=== PATIENT | female | born 1995 | race Caucasian/White ===

== ENCOUNTER 2016-11-21 06:40 | Inpatient (IN) | payer OTHER ==
[~2016-11-21] VITALS: Ht 157.5 cm; Wt 55.8 kg
--- NOTE | 2016-11-21 08:19 | PDOC1 ---
OB - History Hx of Present Care: Good Care Ultrasounds: Normal mid trimester US Obstetrical Complications: None Medical Complications: None Past Family/Social History * Past Medical, Surgical, Family and Obstetric Histories reviewed from chart. Rubella: Unknown RPR/VDRL: Unknown GBS Status: Unknown HBsAG: Unknown OB - Chief Complaint & HPI Date of Admission: Date of Admission: Nov 21, 2016 at 06:40 Chief Complaint/History : 2 Para: 1 EGA: 34 Reason for admission: labor Admission Nurse Assessment Rev: Yes Problems: OB - Admission Exam Physical Exam HEENT: Normal Heart: Regular Rate Lungs: Clear Abdomen: Gravid, Non tender, Soft Extremities: Edema Reflexes: Normal Cervical Dilatation: 4cm Effacement: 75% Station: -2 Membranes: Intact Heart Rate: Normal Accelerations: Accelerations Present Decelerations: No decelerations Contractions on Admission: < 5 Minutes Apart Intensity: Firm Text A: 34 wks IUP PTL GBS unknown P: Admit for PTL management. Start Pen G prophylaxis. KARY ESPINAL Jr, MD Nov 21, 2016 08:19
[2016-11-21] MEDS ORDERED: LIDOCAINE 1% PF 30 ML VIAL. INJ PRN (08:30)
[2016-11-21] MEDS ORDERED: IV RINGERS,LACTATED 1000ML 1,000 ML IV PRN (08:30)
[2016-11-21] MEDS ORDERED: IBUPROFEN 800 MG TABLET. PO PRN (08:30)
[2016-11-21] MEDS ORDERED: fentaNYL PF VIAL 100 MCG/2 ML VIAL IV PRN (08:30)
[2016-11-21] MEDS ORDERED: OXYTOCIN 30 UNIT/500 ML PREMIX 500 ML IV PRN ×2 (08:30→09:45)
[2016-11-21 08:47] LABS: BASO % 0 % (0-3); EOS % 0 % (0-3); HEMATOCRIT 31.3 % (36.0-47.0); HEMOGLOBIN 10.7 g/dL (12.0-15.5); LYMPH # 1.4 x10^3/uL (1.0-4.8); LYMPH % 11 % (24-48); MEAN CORPUSCULAR HEMOGLOBIN 29 pg (25-35); MEAN CORPUSCULAR HGB CONC 34 g/dL (31-37); MEAN CORPUSCULAR VOLUME 84 fL (79-100); MONO % 6 % (0-9); NEUT % 83 % (31-73); PLATELET COUNT 182 x10^3/uL (140-400); RED BLOOD COUNT 3.74 x10^6/uL (3.50-5.40); RED CELL DISTRIBUTION WIDTH 12.8 % (11.5-14.5); WHITE BLOOD COUNT 12.3 x10^3/uL (4.0-11.0)
[2016-11-21] MEDS ORDERED: PENICILLIN G K 5,000,000 UNIT in IV NORMAL SALINE 100ML 100 ML IV ONE (09:00)
--- NOTE | 2016-11-21 09:33 | PDOC ---
VAGINAL DELIVERY DATE DATE: 11/21/16 TIME: 09:31 : 2 Para: 1 EGA: 34 VAGINAL DELIVERY: VTX VACCUM ASSISTED: No PLACENTA: Spontaneous 7/9 SEX: Male WEIGHT Weight [ pending] Nuchal Cord: No Amniotic Fluid: Other (bloody) PAIN: Natural EPISIOTOMY: No EXTENSION: No EBL 400 ml COMPLICATIONS placental abruption 25% CONDITION pt. stable Signs of Intrauterine Infectio: None Shoulder Dystocia: No Problems: KARY ESPINAL Jr, MD Nov 21, 2016 09:33
[2016-11-21] MEDS ORDERED: BENZOCAINE 20% TOPICAL AEROSOL SPRAY 57GM CAN. TP PRN (09:45)
[2016-11-21] MEDS ORDERED: MAG HYDROX/ALUMINUM HYD/SIMETH 30 ML ORAL.SUSP PO PRN (09:45)
[2016-11-21] MEDS ORDERED: DOCUSATE SODIUM 100 MG CAPSULE. PO PRN (09:45)
[2016-11-21] MEDS ORDERED: PHENYLEPH/MINERAL OIL/PETROLAT RECTAL OINTMENT 28GM TUBE. RC PRN (09:45)
[2016-11-21] MEDS ORDERED: SIMETHICONE 80 MG TAB.CHEW PO PRN (09:45)
[2016-11-21] MEDS ORDERED: diphenhydrAMINE HCL 25 MG CAPSULE PO PRN (09:45)
[2016-11-21] MEDS ORDERED: 0.9 % SODIUM CHLORIDE 10 ML DISP.SYRIN. IV PRN (09:45)
[2016-11-21] MEDS ORDERED: HYDROCORTISONE 1% TOPICAL OINTMENT 30GM TUBE. TP PRN (09:45)
[2016-11-21] MEDS ORDERED: oxyCODONE/APAP 5/325 1 TAB TABLET PO PRN (09:45)
[2016-11-21] MEDS ORDERED: ACETAMINOPHEN 325 MG TABLET. PO PRN (09:45)
[2016-11-21] MEDS ORDERED: MMR per PROTOCOL. MC PRN (09:45)
[2016-11-21] MEDS ORDERED: MAGNESIUM HYDROXIDE 2,400 MG/30 ML ORAL.SUSP. PO PRN (09:45)
[2016-11-21] MEDS ORDERED: ZOLPIDEM 5 MG TABLET. PO PRN (09:45)
[2016-11-21 10:15] LABS: BARBITURATES NEG (NEG); BENZODIAZEPINES NEG (NEG); CANNABINOIDS POS (NEG); COCAINE NEG (NEG); METHADONE NEG (NEG); OPIATES NEG (NEG); PHENCYCLIDINE NEG (NEG)
[2016-11-21 10:26] LABS: BILIRUBIN,URINE NEGATIVE (NEG); GLUCOSE,URINE NEGATIVE (NEG); NITRITE,URINE NEGATIVE (NEG); PH,URINE 8.5; PROTEIN,URINE NEGATIVE (NEG-TRACE); UROBILINOGEN,URINE 0.2 mg/dL (0.2 mg/dL)
[2016-11-21 10:39] LABS: BACTERIA,URINE FEW /HPF (0-FEW); RBC,URINE RARE /HPF (0-2)
[2016-11-21 10:40] LABS: SQUAMOUS EPITHELIAL CELL,UR FEW /LPF
[2016-11-21 10:42] VITALS: BP 120/77
[2016-11-21] MEDS ORDERED: PENICILLIN G K 2,500,000 UNIT in IV NORMAL SALINE 50ML 50 ML IV SCH (13:00)
[2016-11-21 13:42] VITALS: BP 106/67
[2016-11-21 14:20] VITALS: BP 108/78
[2016-11-21] MEDS: IBUPROFEN 800 MG TABLET. PO PRN (17:51)
[2016-11-21 20:05] VITALS: BP 100/66
[2016-11-22 01:20] VITALS: BP 94/61
[2016-11-22 05:58] VITALS: BP 107/66
[2016-11-22 07:12] LABS: BASO % 0 % (0-3); EOS % 1 % (0-3); HEMATOCRIT 27.3 % (36.0-47.0); HEMOGLOBIN 9.2 g/dL (12.0-15.5); LYMPH # 2.9 x10^3/uL (1.0-4.8); LYMPH % 24 % (24-48); MEAN CORPUSCULAR HEMOGLOBIN 29 pg (25-35); MEAN CORPUSCULAR HGB CONC 34 g/dL (31-37); MEAN CORPUSCULAR VOLUME 85 fL (79-100); MONO % 6 % (0-9); NEUT % 68 % (31-73); PLATELET COUNT 189 x10^3/uL (140-400); RED BLOOD COUNT 3.22 x10^6/uL (3.50-5.40)
[2016-11-22 07:50] VITALS: BP 109/74
[2016-11-22] MEDS ORDERED: FERROUS SULFATE 325 MG TABLET. PO SCH (08:00)
[2016-11-22] MEDS: IBUPROFEN 800 MG TABLET. PO PRN (10:00)
--- NOTE | 2016-11-22 11:00 | PDOC ---
OB Progress Note Date of Service 11/22/16 Time of Evaluation 1100 Notes Pt. feeling well. No complaints. Lab Laboratory Tests Test 11/21/16 08:36 11/21/16 09:20 11/22/16 05:55 White Blood Count 12.3 x10^3/uL (4.0-11.0) 12.0 x10^3/uL (4.0-11.0) Red Blood Count 3.74 x10^6/uL (3.50-5.40) 3.22 x10^6/uL (3.50-5.40) Hemoglobin 10.7 g/dL (12.0-15.5) 9.2 g/dL (12.0-15.5) Hematocrit 31.3 % (36.0-47.0) 27.3 % (36.0-47.0) Mean Corpuscular Volume 84 fL (79-100) 85 fL (79-100) Mean Corpuscular Hemoglobin 29 pg (25-35) 29 pg (25-35) Mean Corpuscular Hemoglobin Concent 34 g/dL (31-37) 34 g/dL (31-37) Red Cell Distribution Width 12.8 % (11.5-14.5) 13.0 % (11.5-14.5) Platelet Count 182 x10^3/uL (140-400) 189 x10^3/uL (140-400) Neutrophils (%) (Auto) 83 % (31-73) 68 % (31-73) Lymphocytes (%) (Auto) 11 % (24-48) 24 % (24-48) Monocytes (%) (Auto) 6 % (0-9) 6 % (0-9) Eosinophils (%) (Auto) 0 % (0-3) 1 % (0-3) Basophils (%) (Auto) 0 % (0-3) 0 % (0-3) Neutrophils # (Auto) 10.1 x10^3uL (1.8-7.7) 8.2 x10^3uL (1.8-7.7) Lymphocytes # (Auto) 1.4 x10^3/uL (1.0-4.8) 2.9 x10^3/uL (1.0-4.8) Monocytes # (Auto) 0.7 x10^3/uL (0.0-1.1) 0.8 x10^3/uL (0.0-1.1) Eosinophils # (Auto) 0.0 x10^3/uL (0.0-0.7) 0.1 x10^3/uL (0.0-0.7) Basophils # (Auto) 0.0 x10^3/uL (0.0-0.2) 0.0 x10^3/uL (0.0-0.2) RPR Titer Additional Testing Non reactive (Non Reactive) Urine Collection Type Unknown Urine Color Yellow Urine Clarity Clear Urine pH 8.5 Urine Specific [place] 1.015 Urine Protein Negative mg/dL (NEG-TRACE) Urine Glucose (UA) Negative mg/dL (NEG) Urine Ketones (Stick) >=80 mg/dL (NEG) Urine Blood Negative (NEG) Urine Nitrite Negative (NEG) Urine Bilirubin Negative (NEG) Urine Urobilinogen Dipstick 0.2 mg/dL (0.2 mg/dL) Urine Leukocyte Esterase Negative (NEG) Urine RBC Rare /HPF (0-2) Urine WBC 1-4 /HPF (0-4) Urine Squamous Epithelial Cells Few /LPF Urine Amorphous Sediment Present /HPF Urine Bacteria Few /HPF (0-FEW) Urine Mucus Slight /LPF Urine Opiates Screen Neg (NEG) Urine Methadone Screen Neg (NEG) Urine Barbiturates Neg (NEG) Urine Phencyclidine Screen Neg (NEG) Urine Amphetamine/Methamphetamine Neg (NEG) Urine Benzodiazepines Screen Neg (NEG) Urine Cocaine Screen Neg (NEG) Urine Cannabinoids Screen Pos (NEG) Urine Ethyl Alcohol Neg (NEG) Laboratory Tests Test 11/22/16 05:55 White Blood Count 12.0 x10^3/uL (4.0-11.0) Red Blood Count 3.22 x10^6/uL (3.50-5.40) Hemoglobin 9.2 g/dL (12.0-15.5) Hematocrit 27.3 % (36.0-47.0) Mean Corpuscular Volume 85 fL (79-100) Mean Corpuscular Hemoglobin 29 pg (25-35) Mean Corpuscular Hemoglobin Concent 34 g/dL (31-37) Red Cell Distribution Width 13.0 % (11.5-14.5) Platelet Count 189 x10^3/uL (140-400) Neutrophils (%) (Auto) 68 % (31-73) Lymphocytes (%) (Auto) 24 % (24-48) Monocytes (%) (Auto) 6 % (0-9) Eosinophils (%) (Auto) 1 % (0-3) Basophils (%) (Auto) 0 % (0-3) Neutrophils # (Auto) 8.2 x10^3uL (1.8-7.7) Lymphocytes # (Auto) 2.9 x10^3/uL (1.0-4.8) Monocytes # (Auto) 0.8 x10^3/uL (0.0-1.1) Eosinophils # (Auto) 0.1 x10^3/uL (0.0-0.7) Basophils # (Auto) 0.0 x10^3/uL (0.0-0.2) Medications Current Medications Ringer's Solution 1,000 ml @ 125 mls/hr Q8H PRN IV PER PROTOCOL Last administered on 11/21/16 08:55; Start 11/21/16 at 08:30 Fentanyl Citrate (Fentanyl 2ml Vial) 100 mcg PRN Q1HR PRN IV Severe pain Last administered on 11/21/16 08:55; Start 11/21/16 at 08:30 Lidocaine HCl 30 ml 1X PRN PRN INJ SEE COMMENTS; Start 11/21/16 at 08:30; Stop 11/23/16 at 08:29 Oxytocin/Sodium Chloride 500 ml @ 0 mls/hr CONT PRN PRN IV Post delivery bleeding Last administered on 11/21/16 09:30; Start 11/21/16 at 08:30 Ibuprofen (Motrin) 800 mg PRN Q6HRS PRN PO PAIN; Start 11/21/16 at 08:30; Stop 11/21/16 at 12:28; Status DC Penicillin G Potassium 5421353 unit/Sodium Chloride 100 ml @ 100 mls/hr 1X ONCE IV Last administered on 11/21/16 09:08; Start 11/21/16 at 09:00; Stop at 09:59; Status DC Penicillin G Potassium [id number] unit/Sodium Chloride 50 ml @ 100 mls/hr Q4H IV ; Start 11/21/16 at 13:00; Stop 11/22/16 at 07:12; Status DC Sodium Chloride (Normal Saline Flush) 10 ml QSHIFT PRN IV AFTER MEDS AND BLOOD DRAWS; Start 11/21/16 at 09:45 Oxytocin/Sodium Chloride 500 ml @ 62.5 mls/hr CONT PRN IV SEE I/O RECORD; Start 11/21/16 at 09:45; Stop 11/21/16 at 17:44; Status DC Acetaminophen (Tylenol) 650 mg PRN Q6HRS PRN PO MILD PAIN / TEMP Last administered on 11/21/16 23:11; Start 11/21/16 at 09:45 Ibuprofen (Motrin) 800 mg PRN Q8HRS PRN PO INFLAMMATION/PAIN PREVENTION Last administered on 11/22/16 10:00; Start 11/21/16 at 09:45 Docusate Sodium (Colace) 100 mg PRN BID PRN PO CONSTIPATION Last administered on 11/22/16 07:56; Start 11/21/16 at 09:45 Magnesium Hydroxide (Milk Of Magnesia) 2,400 mg PRN DAILY PRN PO CONSTIPATION; Start 11/21/16 at 09:45 Al Hydroxide/Mg Hydroxide (Mylanta Plus Xs) 30 ml PRN Q4HRS PRN PO HEARTBURN / GAS; Start 11/21/16 at 09:45 Simethicone (Gas-X) 80 mg PRN AFTMEALHC PRN PO GAS / BLOATING; Start 11/21/16 at 09:45 Diphenhydramine HCl (Benadryl) 25 mg PRN Q6HRS PRN PO ITCHING; Start 11/21/16 at 09:45 Benzocaine (Americaine) 1 spray PRN QID PRN TP TOPICAL PAIN; Start 11/21/16 at 09:45 Phenyleph/Shark Oil/Min Oil/Petrol (Preparation H) 1 monik PRN QID PRN RC RECTAL PAIN; Start 11/21/16 at 09:45 Hydrocortisone (Cortaid) 1 monik PRN QID PRN TP PERINEAL PAIN; Start 11/21/16 at 09:45 Ferrous Sulfate (Feosol) 325 mg BIDWMEALS PO Last administered on 11/22/16 07: 56; Start 11/22/16 at 08:00 Zolpidem Tartrate (Ambien) 5 mg PRN QHS PRN PO INSOMNIA, MAY REPEAT X1; Start 11/21/16 at 09:45 Info (Do NOT chart on this placeholder) 1 ea 1X PRN PRN MC SEE COMMENTS; Start 11/21/16 at 09:45 Info (Do NOT chart on this placeholder) 1 ea 1X PRN PRN MC SEE COMMENTS; Start 11/21/16 at 09:45 Oxycodone/ Acetaminophen (Percocet 5/325) 2 tab PRN Q4HRS PRN PO MODERATE PAIN , SEVERE PAIN; Start 11/21/16 at 09:45 Exam Abd: soft, non tender, fundus firm Assessment PPD#1 s/p Plan of Care: See new orders (D/c home.) KARY ESPINAL Jr, MD Nov 22, 2016 11:00
--- NOTE | 2016-11-22 11:01 | DISCH ---
DISCHARGE INSTRUCTIONS Condition on Discharge Condition on Discharge: Stable Activity After Discharge Activity Instructions for Disc: Resume previous activity Lifting Instructions after Dis: No heavy lifting Driving Instructions after Dis: Do not drive today Diet after Discharge Diet after Discharge: Regular Contacting the after DC Call your doctor for: Concerns you may have Follow-Up Follow up with: Dr. Mccabe in 6 wks KARY MCCABE Jr, MD Nov 22, 2016 11:01
[2016-11-22] MEDS ORDERED: IBUP-1060 PO (11:02)
[2016-11-22 11:10] VITALS: BP 111/71
--- NOTE | 2016-11-23 10:57 | PATHOLOGY ---
PATHOLOGY REPORT * * * * * * * * FINAL DIAGNOSIS: Placenta: - Third trimester placenta, 593 grams. - Attached trivascular umbilical cord and membranes without significant inflammation. - Acute deciduitis. - Mild meconium staining of membranes. - Retromembranous hematoma, 4 cm. - Placental parenchyma with no significant histopathologic diagnosis. (SKM:Pit; 11/23/2016) REPORT ELECTRONICALLY SIGNED BY: Doug Escamilla M.D. DATE/TIME: 11/23/2016 10:56 * * * * * * * * GROSS PATHOLOGY: The specimen is received in formalin, labeled "Maritza Gordon, placenta" and consists 593 g (after removal of umbilical cord and membranes) 15.0 x 14.5 x 4.5 cm near round dobson placenta. The trivascular umbilical cord is centrally inserted with cord measuring 42 cm in length by 1.4 cm in diameter. The cord shows decreased twists. The membranes are luu, brown, hemorrhagic, and the chorion is partially separate from amnion. The point of rupture is indeterminate. The surface is glistening, luu, focally orange, dull blue peralta and well vascularized. The maternal surface shows intact pink complete cotyledons. No retroplacental blood clot is identified. There is however, a retro-membranous hematoma present. The area measures 4 cm in greatest dimension (estimated volume 10 cc). Also within the container is approximately 20 cc of hematoma. Clock Smith sections submitted A1-A4. A1 umbilical cord, membrane roll, and retro-membranous section A2 retro-membranous hematoma A3 periphery and umbilical cord A4 and maternal (RENEE; 11/22/2016) INITIAL CPT CODE(S): A; 07670 Professional services performed by [facility] at [address] [address] Technical services performed by [facility] at [address] [place] [address], [address], [place] [address]. SPECIMEN(S) RECEIVED: A.Placenta CLINICAL HISTORY: , , abruptio placenta, 5lb 8oz male @ 0922 on 11/21/16, EDC 12/30/16, baby to [facility] PATIENT: MARITZA GORDON /AGE: 7 1995 (Age: 21) PATIENT #: [id number] [facility] CASE #: SPECIMEN COLLECTION DATE: 11/21/2016 SPECIMEN RECEIVED DATE: 11/21/2016 [facility] - [address] [place] [address] - PHONE: [phone] * * * END OF REPORT * * *
== END 2016-11-22 11:30 | disposition home or self-care (01) | DRG 774 ==
LOC: OBSVTOIN 06:40 → 3 SO LND 06:40 → 3 NORTH 12:27
PROVIDERS: ADMIT Obstetrics & Gynecology; ATTEND Obstetrics & Gynecology
PROC: 10E0XZZ Delivery of Products of Conception, External Approach (ICD-10-PCS; principal; 2016-11-21)
DX: O45.93 Premature separation of placenta, unspecified, third trimester (principal); O41.93X0 Disorder of amniotic fluid and membranes, unspecified, third trimester, not applicable or unspecified; Z37.0 Single live birth; Z3A.34 34 weeks gestation of pregnancy
CPT/HCPCS: 36415; 80307; 81001; 85025; 86593; 86850; 86900; 86901; 87086; 88307; G0378; J2540; J2590; J3010; J7120; G0479

== ENCOUNTER 2021-02-05 05:36 | Emergency (ER) | payer OTHER ==
[~2021-02-05] VITALS: Ht 157.5 cm; Wt 45.0 kg
[~2021-02-05 05:36] MED LIST: IBUP-1060 PO
[2021-02-05] MEDS ORDERED: NEOMY/BACITR/POLYMYXIN OINT PACKET. TP ONE (06:30)
[2021-02-05] MEDS ORDERED: LIDOCAINE 1% Multi-Dose 20 ML VIAL. INJ ONE (06:30)
[2021-02-05] MEDS ORDERED: DIPH,PERTUSS(ACELL),TET VAC/PF 0.5 ML SYRINGE. VAX IM ONE (06:30)
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
--- NOTE | 2021-02-05 06:51 | RAD ---
XR FINGER(S)_RIGHT 2+VIEWS DATE: 02/05/2021 6:32 AM INDICATION: 5th digit laceration COMPARISON: None. FINDINGS: Bones: There is no evidence of acute fracture or dislocation. Joints: The joint spaces are normal. Miscellaneous: No radiopaque foreign bodies. No radiopaque foreign body IMPRESSION: No acute fracture or radiopaque foreign body Electronically signed by: Armin Hollins MD (02/05/2021 6:49 AM) [facility]
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
[2021-02-05 07:17] VITALS: BP 123/78
[2021-02-05] MEDS ORDERED: CEPH500C PO (07:37)
== END 2021-02-05 07:49 | disposition home or self-care (01) ==
LOC: ER 05:36
DX: S61.216A Laceration without foreign body of right little finger without damage to nail, initial encounter (principal); S00.83XA Contusion of other part of head, initial encounter; R51.9 Headache, unspecified; M54.2 Cervicalgia; F17.200 Nicotine dependence, unspecified, uncomplicated; F10.20 Alcohol dependence, uncomplicated; Y90.9 Presence of alcohol in blood, level not specified; X99.0XXA Assault by sharp glass, initial encounter; Y93.89 Activity, other specified; Y92.89 Other specified places as the place of occurrence of the external cause; Y99.8 Other external cause status
CPT/HCPCS: 12002; 70450; 72125; 73140; 81025; 99284; J3490